=== PATIENT | male | born 1970 | race Caucasian/White ===

== ENCOUNTER 2019-08-03 15:01 | Emergency (ER) | payer OTHER, SELFPAY ==
[2019-08-03 15:04] VITALS: BP 159/99; PULSE 88; RESP 16; TEMP 36.7; O2SAT 95; BMI 39.1
--- NOTE | 2019-08-03 15:06 | NURSING ---
NO OLD EKGS
--- NOTE | 2019-08-03 15:56 | CT_ITS ---
STUDY: CT BRAIN WITHOUT CONTRAST REASON FOR EXAM: Male, 49 years old. Syncope RADIATION DOSAGE (If Supplied By Facility): CTDIvol = ( 44.99 ) mGy, DLP = ( 779.24 ) mGycm TECHNIQUE: Transaxial CT imaging of the brain was performed without administration of intravenous contrast material. Individualized dose optimization techniques were used for this CT. COMPARISON: None. FINDINGS: There is no acute bleed or infarct. There are normal white matter tracts. The ventricles are normal in configuration. There is no hydrocephalus. There is mucosal hypertrophy in the maxillary sinuses. The visualized paranasal sinuses are otherwise clear. The mastoid air cells are well aerated. There is no skull fracture. CT/Brain/Head without Contrast IMPRESSION: No acute intracranial abnormality. Maxillary sinusitis. Electronically Signed: Faisal Balbuena, at 17:20 EST Tel , Service support ,
--- NOTE | 2019-08-03 15:57 | EKG12_ITS ---
Test Reason : Blood Pressure : / mmHG Vent. Rate : 079 BPM Atrial Rate : 079 BPM P-R Int : 168 ms QRS Dur : 082 ms QT Int : 360 ms P-R-T Axes : 022 017 006 degrees QTc Int : 412 ms Normal sinus rhythm Normal ECG Confirmed by MATHEW MEYERS ([id number]), film editor supervisor RANJANA PRUETT ([id number]) on 08/05/2019 9:42:51 AM Referred By: EMILY Confirmed By:MATHEW MEYERS
--- NOTE | 2019-08-03 15:57 | ED.DCSUM_ITS ---
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 They usually have a fan running to help circulate air, but today they did not. Patient was feeling lightheaded with a mild headache, he then passed out. EMS was called, paramedics check carbon monoxide levels on him and they were estimated at 30%. He is a non-smoker. They removed him from the area and gave him oxygen, he is feeling better now but his headache is worse after passing out and hitting his head that was beforehand. Otherwise he feels fine. His neck is a little sore. He denies any confusion, his is here with him. He denies any weakness or numbness in any extremity or any chest discomfort or dyspnea. He is healthy and takes no prescriptions for medical issues. Past Medical History - Allergies and Home Meds Allergies/Adverse Reactions: Allergies No Known Allergies Allergy (Verified 08/03/19 15:04) Primary Care Physician: Owen oCrtez MD [Primary Care Provider] - 3-5 Days if not improving Past Medical History: None Surgical History: no surgical history Lives: With Family Smoking Status: Never smoker Review of Systems General: Reports: Malaise. Denies: Chills, Fever, Sweats Eyes: Denies: Visual changes - bilaterally, Diplopia ENT: Denies: Rhinorrhea, Sore throat Cardiovascular: Denies: Chest pain, Palpitations Respiratory: Denies: Dyspnea, Cough, Dyspnea on exertion Gastrointestinal: Denies: Abdominal pain, Nausea, Vomiting, Diarrhea, Melena, Hematochezia Genitourinary: Denies: Dysuria, Hematuria, Frequency Musculoskeletal: Reports: Neck pain. Denies: Back pain, Swelling, Extremity Pain Skin: Denies: Rash, Wounds Neurological: Reports: Headache. Denies: Weakness, Parasthesia, Numbness Physical Exam Vital Signs/Narrative: Vital Signs Temp Pulse Resp BP Pulse Ox 08/03/19 15:04 98.1 F 88 16 159/99 H 95 Inital Vital Signs reviewed: Yes General: Well nourished, Well developed, Obese, No Acute Distress Head: Normocephalic, Tenderness - Mild right occipital scalp/skull, no crepitance, depression, hematoma, evidence of trauma. Eyes: Perrl, EOMI ENT: Moist mucous membranes, No rhinorrhea, TM's clear, - - No raccoon eyes or hicks sign. No facial trauma. Neck: Supple, Nontender, - - Full range of motion including rotation to both sides without any pain or neurologic symptoms Cardiovascular: Regular rate, Regular rhythm, No murmurs Respiratory: No distress, CTA bilaterally, Chest nontender Abdomen: Soft, Nontender, Nondistended, Normal bowel sounds Back: Nontender, Normal Inspection Extremities: Nontender, No edema Skin: Normal color, No rash, No Trauma Neurological: Alert, Oriented x3, Cranial nerves II-XII grossly intact, Normal Strength, Normal Sensation Psychological: Normal affect, Normal Mood Diagnostic/Tx/Re-eval Impressions Brain CT 08/03/19 15:56 IMPRESSION: No acute intracranial abnormality. Maxillary sinusitis. Electronically Signed: Faisal Balbuena, at 17:20 EST Tel , Service support , 08/03/19 15:56 CT Brain [Brain/Head without Contrast] [CT] Stat Laboratory Results 08/03/19 15:55 VBG Carboxyhemoglobin 15.4 H - Rhythm Strip Rhythm Strip: Sinus Rhythm Rate: 79 Ectopy: None - EKG Initial EKG Interpretation: Sinus Rhythm, No Acute Injury Pattern - normal EKG - Medical Decision Making Patient was immediately placed on a nonrebreather and a carboxyhemoglobin level was drawn and sent. It returned just over 15%. CT shows no traumatic injury. His EKG is normal and nonischemic. He was given Tylenol but before that his headache improved on nonrebreather oxygen. He is feeling very good. We will kept him here on oxygen for several hours, but he was feeling better and wanted to leave which I think is fine. He understands to go home to an environment that is not potentially toxic and not the one at which he was prior to coming to the ER. He is neurologically intact and meets no indications at this time for hyperbaric treatment. Given appropriate discharge instructions and reasons to return. He is comfortable with this plan as is his . ED Disposition - Plan for ED Patient: Disposition: Home or Assisted Living Diagnosis: Syncope, Closed head injury, Carbon monoxide poisoning Instructions: ED Carbon Monoxide Poisoning Referrals: Owen Cortez MD [Primary Care Provider] - 3-5 Days if not improving
[2019-08-03 16:44] LABS: Carboxyhemoglobin Frac (CO) 15.4 % (0.0-1.5)
[2019-08-03 18:30] VITALS: RESP 18
[2019-08-03] MEDS: Acetaminophen 500 MG Tablet 1000 MG PO (18:30)
== END 2019-08-03 18:31 | disposition home or self-care (01) ==
PROVIDERS: Emergency Provider Emergency Medicine; PCP Family Medicine
DX: R55 Syncope and collapse (principal); S09.90XA Unspecified injury of head, initial encounter; T58.91XA Toxic effect of carbon monoxide from unspecified source, accidental (unintentional), initial encounter
CPT/HCPCS: 70450; 82375; 93005; 99282; A4216